=== PATIENT | female | born 1985 | race African-American/Black ===

== ENCOUNTER 2017-04-18 13:24 | Emergency (ER) | payer OTHER ==
[2017-04-18] MEDS ORDERED: methylPREDNISolone NA SUCC 125 MG/2 ML VIAL IVPUSH ONE (13:35)
[2017-04-18] MEDS ORDERED: ALBUTEROL SO4 2.5/IPRATROPIUM 0.5 INH SOL 3 ML VIAL.NEB. NEB ONE ×3 (13:35→14:20)
[2017-04-18] MEDS ORDERED: SODIUM CHLORIDE 0.9% 1000 ML INFUS.BAG IV ONE (13:35)
[2017-04-18 13:40] VITALS: BP 130/87; PULSE 110; TEMP 97.8; BMI 35.9
[2017-04-18] MEDS ORDERED: methylPREDNISolone NA SUCC 125 MG/2 ML VIAL ONE (13:42)
--- NOTE | 2017-04-18 13:44 | PDOC ---
History of Present Illness - General Chief Complaint: Asthma Stated Complaint: ASTHMA ATTACK Time Seen by Provider: 04/18/17 13:35 History Source: Patient Exam Limitations: No Limitations - History of Present Illness Initial Comments: 04/18/17 13:43 The patient is a 31F with a PMH of asthma who presents in an asthma exacerbation. The patient states that she's felt short of breath since last night and it does not feel like her asthma attacks. She has not had an asthma attack in 5 years and does not take any medications daily for asthma. She also admits to a dry cough that started 1 hour ago and is intermittent. She denies any fever, chills, CP, abdominal pain, nausea, and vomiting. She denies OCP use , but admits to a 4 hour car ride 2 weeks ago and some R calf pain. Past History - Past Medical History Allergies/Adverse Reactions: Allergies Allergy/AdvReac Type Severity Reaction Status Date / Time shellfish derived Allergy THROAT Verified 04/18/17 13:40 SWELLING Home Medications: Ambulatory Orders Albuterol Sulfate [Proventil HFA Inhaler -] 1 - 2 inh PO TID 03/19/15 Oxycodone HCl/Acetaminophen [Percocet 5-325 mg Tablet -] 1 tab PO Q6H PRN #20 tablet 03/20/15 Anemia: Yes Asthma: Yes Cancer: No Cardiac Disorders: No CVA: No COPD: No CHF: No Dementia: No Diabetes: No GI Disorders: No Disorders: No HTN: No Hypercholesterolemia: No Liver Disease: No Seizures: No Thyroid Disease: No - Surgical History Abdominal Surgery: Yes (hernia) Appendectomy: No Cardiac Surgery: No Cholecystectomy: No Lung Surgery: No Neurologic Surgery: No Orthopedic Surgery: No - Suicide/Smoking/Psychosocial Hx Smoking History: Never smoked Have you smoked in the past 12 months: No Information on smoking cessation initiated: No Hx Alcohol Use: Yes (SOCIAL) Drug/Substance Use Hx: No Substance Use Type: Alcohol Hx Substance Use Treatment: No Review of Systems - Review of Systems Able to Perform ROS?: Yes Comments:: 04/18/17 13:53 GENERAL/CONSTITUTIONAL: No fever or chills. No weakness. HEAD, EYES, EARS, NOSE AND THROAT: No change in vision. No ear pain or discharge. No sore throat. CARDIOVASCULAR: Positive for chest tightness. No chest pain, palpitations, or lightheadedness. RESPIRATORY: Positive for SOB and cough. No wheezing, or hemoptysis. GASTROINTESTINAL: No nausea, vomiting, diarrhea, constipation, or abdominal pain. GENITOURINARY: No dysuria, frequency, hematuria, or change in urination. MUSCULOSKELETAL: Positive for R calf pain. No neck or back pain. SKIN: No rash or lesions. NEUROLOGIC: No headache, numbness, tingling, weakness, loss of consciousness, or change in strength/sensation. ENDOCRINE: No increased thirst. No abnormal weight change. HEMATOLOGIC/LYMPHATIC: No anemia, easy bleeding, or history of blood clots. ALLERGIC/IMMUNOLOGIC: No hives or skin allergy. Is the patient limited Italian proficient: No *Physical Exam - Vital Signs Last Vital Signs Temp Pulse Resp BP Pulse Ox 97.8 F 110 H 26 H 130/87 100 04/18/17 13:35 04/18/17 13:38 04/18/17 13:35 04/18/17 13:35 04/18/17 13:38 - Physical Exam Comments: 04/18/17 13:56 GENERAL: Well developed, well nourished, obese. Awake and alert. In moderate distress. HEENT: Normocephalic, atraumatic. Hearing grossly normal. Moist mucous membranes. PERRLA, EOMI. No conjunctival pallor. Sclera are non-icteric. NECK: Supple. Full ROM. No JVD. CARDIOVASCULAR: Regular rate and rhythm. No murmurs, rubs, or gallops. Distal pulses are 2+ and symmetric. PULMONARY: Mild respiratory distress, no retractions. LCTAB. No wheezing, rales or rhonchi. ABDOMINAL: Soft. Non-tender. Non-distended. No rebound or guarding. No organomegaly. Normoactive bowel sounds. GENITOURINARY: No CVA tenderness bilaterally. MUSCULOSKELETAL: Normal range of motion at all joints. No bony deformities or tenderness. EXTREMITIES: No cyanosis. No clubbing. No edema. No calf tenderness. SKIN: Warm and dry. Normal capillary refill. No rashes. No jaundice. NEUROLOGICAL: Alert, awake, appropriate. Cranial nerves 2-12 intact. Normal speech. Gait is normal without ataxia. PSYCHIATRIC: Cooperative. Good eye contact. Appropriate mood and affect. ED Treatment Course - LABORATORY CBC & Chemistry Diagram: 04/18/17 14:05 04/18/17 14:05 - RADIOLOGY Radiology Studies Ordered: Category Date Time Status CHEST X-RAY PORTABLE* [RAD] Stat Radiology 04/18/17 13:36 Ordered Medical Decision Making - Medical Decision Making 04/18/17 14:03 The patient is a 31F with a PMH of asthma who presents with SOB. I am concerned for PE as the patient states this is not like her usual SOB and she has long car trips with R calf pain. Pending labs and imaging. Will monitor closely. Will give duonebs for treatment with steroids and IVF. 04/18/17 15:59 Preliminary reading of chest xr reveals no acute process. Will reevaluate patient. Labs WNL. 04/18/17 16:57 CXR shows no acute pathology. Will d/c pt with albuterol and d/c instruction to return if symptoms worsen. *DC/Admit/Observation/Transfer Diagnosis at time of Disposition: Asthma attack Qualifiers: Asthma severity: mild Asthma persistence: intermittent Qualified Code(s): J45.21 - Mild intermittent asthma with (acute) exacerbation - Discharge Dispostion Disposition: HOME Condition at time of disposition: Stable Admit: No - Referrals Referrals: Cynthia Sanabria MD [Primary Care Provider] - - Patient Instructions Printed Discharge Instructions: Asthma -- Adult Additional Instructions: Please return to the ER if symptoms persist, worsen, or new symptoms arise. Please follow up with your primary care physician in 2-3 days. Please return to the ER if you have any signs or symptoms of chest pain, shortness of breath, uncontrollable fever, chills, nausea, vomiting, numbness, tingling, or weakness in any part of your body, changes in vision, or slurred speech. Please take your medications as prescribed. - Post Discharge Activity
[2017-04-18 14:14] LABS: BASO % 1.3 % (0-2.0); EOS % 1.7 % (0-4.5); HEMOGLOBIN 10.7 GM/dL (10.7-15.3); LYMPH % 56.4 % (8-40); MCH 21.7 pg (25.7-33.7); MCHC 30.7 g/dl (32.0-36.0); MEAN CELL VOLUME 70.5 fl (80-96); MEAN PLT VOLUME 8.7 fl (7.5-11.1); MONO % 6.2 % (3.8-10.2); NEUT % 34.4 % (42.8-82.8); PLATELET COUNT 374 K/MM3 (134-434); RBC 4.96 M/mm3 (3.60-5.2); RDW 18.3 % (11.6-15.6); WHITE BLOOD COUNT 6.9 K/mm3 (4.0-10.0)
[2017-04-18 14:41] LABS: ALBUMIN 4.3 g/dl (3.4-5.0); ANION GAP 12 (8-16); BILIRUBIN,TOTAL 0.6 mg/dL (0.2-1.0); BLOOD UREA NITROGEN 19 mg/dL (7-18); CHLORIDE 102 mmol/L (98-107); CO2 25 mmol/L (21-32); CREATININE 0.8 mg/dL (0.55-1.02); GLUCOSE,RANDOM 98 mg/dL (74-106); POTASSIUM 3.4 mmol/L (3.5-5.1); SGOT/AST 16 U/L (15-37); SGPT/ALT 19 U/L (12-78); SODIUM 139 mmol/L (136-145); TOT PROT 8.3 g/dl (6.4-8.2)
[2017-04-18 14:48] LABS: ALK PHOS 56 U/L (45-117)
[2017-04-18 14:50] LABS: MAGNESIUM 1.8 mg/dL (1.8-2.4)
--- NOTE | 2017-04-18 15:25 | PDOC ---
Attending Attestation - Resident Resident Name: Lion Aragon - ED Attending Attestation I have performed the following: I have examined & evaluated the patient, The case was reviewed & discussed with the resident, I agree w/resident's findings & plan, Exceptions are as noted - HPI HPI: 04/18/17 15:21 31 F with h/o asthma presents to ED with 2 days of SOB and chest pressure. Pt states that her symptoms started yesterday and progressively worsened. Today at work, she felt very lightheaded and had difficulty breathing, which prompted her to come to ER. Pt states that she has had asthma exacerbations in the past, and this feels slightly different. Pt reports that she has been driving a lot recently and noticed some cramping in her R calf which has since subsided. She is not on OCPs. Denies h/o DVT/PE. - Physicial Exam PE: 04/18/17 15:23 "GENERAL: Awake, alert, and fully oriented, in no acute distress HEAD: No signs of trauma EYES: PERRLA, EOMI, sclera anicteric, conjunctiva clear ENT: Auricles normal inspection, hearing grossly normal, nares patent, oropharynx clear without exudates. Moist mucosa NECK: Nontender, no stepoffs, Normal ROM, supple, no lymphadenopathy, JVD, or masses LUNGS: + bilateral expiratory wheezes HEART: Regular rate and rhythm, normal S1 and S2, no murmurs, rubs or gallops ABDOMEN: Soft, nontender, normoactive bowel sounds. No guarding, no rebound. No masses EXTREMITIES: Normal range of motion, no edema. No clubbing or cyanosis. No cords, erythema, or tenderness NEUROLOGICAL: Cranial nerves II through XII intact. 5/5 strength and sensation in all extremities, Normal speech, normal gait SKIN: Warm, Dry, normal turgor, no rashes or lesions noted. " - Medical Decision Making 04/18/17 15:23 31 F with SOB, found to be wheezing on exam. Likely asthma exacerbation. Pt with no clinical signs of DVT, but given prolonged driving and R calf cramp, will send ddimer to r/o DVT/PE. - Labs, ddimer - nebs, steroids - reassess
== END 2017-04-18 17:10 | disposition home or self-care (01) ==
LOC: JER 13:24
PROC: 3E0F7GC Introduction of Other Therapeutic Substance into Respiratory Tract, Via Natural or Artificial Opening (ICD-10-PCS; principal; 2017-04-18)
PROC: 3E0F7GC Introduction of Other Therapeutic Substance into Respiratory Tract, Via Natural or Artificial Opening (ICD-10-PCS; 2017-04-18)
PROC: 3E0333Z Introduction of Anti-inflammatory into Peripheral Vein, Percutaneous Approach (ICD-10-PCS; 2017-04-18)
PROC: 3E0333Z Introduction of Anti-inflammatory into Peripheral Vein, Percutaneous Approach (ICD-10-PCS; 2017-04-18)
DX: J45.21 Mild intermittent asthma with (acute) exacerbation (principal)
CPT/HCPCS: 36415; 71045-TC; 80053; 83735; 84703; 85025; 85379; 99282-25

== ENCOUNTER 2023-07-25 04:28 | Inpatient (IN) | payer OTHER, BC ==
[2023-07-20 15:56] VITALS: BMI 30.7
[2023-07-25] MEDS ORDERED: ceFAZolin SODIUM 1 GM VIAL ONE (06:51)
[2023-07-25] MEDS ORDERED: HEPARIN NA (PORCINE) 5,000 UNITS/ML 1ML VIAL ONE (07:17)
[2023-07-25] MEDS ORDERED: ROCURONIUM BROMIDE 50 MG/5 ML SYRINGE ONE ×2 (07:20→10:27)
[2023-07-25] MEDS ORDERED: FENTANYL CITRATE/PF 50 MCG/ML VIAL ONE ×5 (07:20→12:54)
[2023-07-25] MEDS ORDERED: PROPOFOL 20 ML ONE (07:20)
[2023-07-25] MEDS ORDERED: MIDAZOLAM HCL 2 MG/2 ML SINGLE DOSE VIAL ONE (07:21)
[2023-07-25] MEDS ORDERED: ONDANSETRON 4 MG/2 ML VIAL IVPUSH PRN ×2 (07:28→11:27)
[2023-07-25] MEDS ORDERED: ACETAMINOPHEN 325 MG TABLET (FP) PO PRN (07:28)
[2023-07-25] MEDS ORDERED: ACETAMINOPHEN INJECTION 100 ML IVPB ONE (07:46)
[2023-07-25] MEDS ORDERED: DEXAMETHASONE SOD PHOSPHATE 10 MG/1 ML VIAL ONE (07:59)
[2023-07-25] MEDS ORDERED: BUPIVACAINE HCL/PF 0.25% (2.5MG/ML) 10 ML VIAL ONE (07:59)
[2023-07-25] MEDS: ceFAZolin SODIUM 1 GM VIAL IVPB ONE (09:15)
[2023-07-25] MEDS ORDERED: ONDANSETRON 4 MG/2 ML VIAL ONE (09:16)
[2023-07-25] MEDS ORDERED: DEXAMETHASONE SOD PHOSPHATE 4 MG/1 ML VIAL ONE ×2 (09:16)
[2023-07-25] MEDS ORDERED: SUGAMMADEX SODIUM 200 MG/2 ML VIAL ONE (10:27)
[2023-07-25] MEDS ORDERED: HYDROmorphone HCl 2 MG/ML VIAL ONE (10:46)
[2023-07-25] MEDS ORDERED: KETOROLAC TROMETHAMINE 30 MG/1 ML VIAL ONE (10:47)
[2023-07-25] MEDS: LACTATED RINGERS SOLUTION 1,000 ML IV SCH (11:20)
[2023-07-25] MEDS ORDERED: ALBUTEROL SO4 HFA INHALER IH PRN (11:45)
[2023-07-25 13:16] LABS: HEMATOCRIT 24.2 % (32.4-45.2); HEMOGLOBIN 7.4 GM/dL (10.7-15.3); MCHC 30.5 g/dl (32.0-36.0); MEAN CELL VOLUME 63.5 fl (80-96); MEAN PLT VOLUME 8.3 fl (7.5-11.1); PLATELET COUNT 241 10^3/uL (134-434); RBC 3.82 M/mm3 (3.60-5.2); RDW 21.5 % (11.6-15.6); WHITE BLOOD COUNT 13.7 K/mm3 (4.0-10.0)
[2023-07-25 13:17] LABS: MCH 19.4 pg (25.7-33.7)
[2023-07-25] MEDS: CEFAZOLIN SODIUM 2 GM in DEXTROSE 5%-WATER 100 ML IVPB ONE (14:39)
[2023-07-25] MEDS: ACETAMINOPHEN 325 MG TABLET (FP) PO SCH ×2 (14:40→16:53)
[2023-07-25] MEDS: KETOROLAC TROMETHAMINE 30 MG/1 ML VIAL IVPUSH SCH ×2 (16:52→16:59)
[2023-07-25] MEDS: HYDROmorphone HCl 2 MG/ML VIAL IVPB PRN (20:28)
[2023-07-26 06:52] LABS: HEMATOCRIT 17.1 % (32.4-45.2); MCHC 31.2 g/dl (32.0-36.0); MEAN CELL VOLUME 63.6 fl (80-96); MEAN PLT VOLUME 8.2 fl (7.5-11.1); PLATELET COUNT 179 10^3/uL (134-434); RBC 2.69 M/mm3 (3.60-5.2); RDW 20.7 % (11.6-15.6); WHITE BLOOD COUNT 10.4 K/mm3 (4.0-10.0)
[2023-07-26 07:06] LABS: MCH 19.9 pg (25.7-33.7)
[2023-07-26 07:11] LABS: HEMOGLOBIN 5.3 GM/dL (10.7-15.3)
[2023-07-26] MEDS ORDERED: ENOXAPARIN NA (PORCINE) 40 MG/0.4 ML DISP.SYRIN SQ SCH (10:00)
[2023-07-26] MEDS: ACETAMINOPHEN 1000 MG/100 ML BAG IVPB SCH (10:32)
[2023-07-26] MEDS ORDERED: ACETAMINOPHEN 500 MG TABLET (FP) PO SCH (14:00)
[2023-07-26 15:15] LABS: BASO % 0.7 % (0-2.0); EOS % 0.1 % (0-4.5); LYMPH % 26.4 % (8-40); MCH 22.8 pg (25.7-33.7); MCHC 32.2 g/dl (32.0-36.0); MEAN CELL VOLUME 70.9 fl (80-96); MEAN PLT VOLUME 8.2 fl (7.5-11.1); MONO % 6.9 % (3.8-10.2); NEUT % 65.9 % (42.8-82.8); PLATELET COUNT 167 10^3/uL (134-434); RBC 3.52 M/mm3 (3.60-5.2); RDW 25.9 % (11.6-15.6); WHITE BLOOD COUNT 11.5 K/mm3 (4.0-10.0)
[2023-07-26] MEDS ORDERED: SIMETHICONE 80 MG TAB.CHEW (FP) PO PRN (15:32)
[2023-07-26] MEDS: oxyCODONE HCL 5 MG TABLET PO PRN (15:48)
[2023-07-26] MEDS: FAMOTIDINE 20 MG/50 ML IVPB 20 MG/50 ML MG IVPB ONE (16:22)
[2023-07-26 17:17] LABS: ANISOCYTOSIS 3+; MACROCYTOSIS 0; TARGET CELLS 1+
[2023-07-27] MEDS: oxyCODONE HCL 5 MG TABLET PO PRN (06:38)
[2023-07-27 08:22] LABS: BASO % 0.9 % (0-2.0); EOS % 1.1 % (0-4.5); HEMATOCRIT 22.8 % (32.4-45.2); HEMOGLOBIN 7.5 GM/dL (10.7-15.3); LYMPH % 34.3 % (8-40); MCH 23.1 pg (25.7-33.7); MCHC 33.1 g/dl (32.0-36.0); MEAN CELL VOLUME 69.8 fl (80-96); MEAN PLT VOLUME 8.2 fl (7.5-11.1); MONO % 5.8 % (3.8-10.2); NEUT % 57.9 % (42.8-82.8); PLATELET COUNT 162 10^3/uL (134-434); RBC 3.27 M/mm3 (3.60-5.2); RDW 24.4 % (11.6-15.6); WHITE BLOOD COUNT 9.8 K/mm3 (4.0-10.0)
[2023-07-27 09:25] LABS: CALCIUM 7.5 mg/dL (8.5-10.1); CREATININE 0.6 mg/dL (0.55-1.3); POTASSIUM 3.7 mmol/L (3.5-5.1)
[2023-07-27] MEDS: ACETAMINOPHEN 500 MG TABLET (FP) PO SCH ×2 (14:38→21:50)
[2023-07-27 15:17] LABS: BASO % 0.7 % (0-2.0); EOS % 1.4 % (0-4.5); HEMATOCRIT 23.8 % (32.4-45.2); HEMOGLOBIN 7.7 GM/dL (10.7-15.3); LYMPH % 34.4 % (8-40); MCH 22.6 pg (25.7-33.7); MCHC 32.3 g/dl (32.0-36.0); MEAN CELL VOLUME 69.9 fl (80-96); MEAN PLT VOLUME 8.2 fl (7.5-11.1); MONO % 5.5 % (3.8-10.2); PLATELET COUNT 176 10^3/uL (134-434); RDW 24.7 % (11.6-15.6); WHITE BLOOD COUNT 9.2 K/mm3 (4.0-10.0)
[2023-07-27] MEDS: FERROUS SO4 325 MG TABLET (FP) PO SCH (17:18)
[2023-07-27] MEDS ORDERED: ALBUTEROL SO4 HFA INHALER IH PRN (18:26)
[2023-07-27] MEDS ORDERED: oxyCODONE HCL 5 MG TABLET PO PRN ×2 (18:26)
[2023-07-27] MEDS ORDERED: ONDANSETRON 4 MG/2 ML VIAL IVPUSH PRN (18:26)
[2023-07-27] MEDS: IBUPROFEN 600 MG TABLET (FP) PO PRN (20:40)
[2023-07-27] MEDS ORDERED: PATIENT'S OWN MEDICATION (NON-FORMULARY) (Fluticasone/Salmeterol [Advair Hfa 115-21 Mcg In PO SCH (22:00)
[2023-07-28] MEDS: PATIENT'S OWN MEDICATION (NON-FORMULARY) (Fluticasone/Salmeterol [Advair Hfa 115-21 Mcg In PO SCH (02:15)
[2023-07-28] MEDS: SIMETHICONE 80 MG TAB.CHEW (FP) PO PRN (09:12)
[2023-07-28] MEDS: FERROUS SO4 325 MG TABLET (FP) PO SCH (09:12)
[2023-07-28 09:32] LABS: BASO % 0.8 % (0-2.0); EOS % 1.9 % (0-4.5); HEMATOCRIT 27.1 % (32.4-45.2); LYMPH % 22.6 % (8-40); MCH 23.7 pg (25.7-33.7); MCHC 33.3 g/dl (32.0-36.0); MEAN CELL VOLUME 71.2 fl (80-96); MONO % 6.1 % (3.8-10.2); NEUT % 68.6 % (42.8-82.8); PLATELET COUNT 173 10^3/uL (134-434); RDW 25.1 % (11.6-15.6); WHITE BLOOD COUNT 8.2 K/mm3 (4.0-10.0)
[2023-07-28] MEDS: LACTATED RINGERS SOLUTION 1,000 ML IV SCH (12:41)
[2023-07-28 13:46] VITALS: BP 132/81; PULSE 86; RESP 18; TEMP 97.3
[2023-07-28] MEDS: POLYETHYLENE GLYCOL (HEALTHYLAX) 3350 17 GM PACKET PO ONE (15:50)
[2023-07-28] MEDS: KETOROLAC TROMETHAMINE 15 MG/ML VIAL IVPUSH ONE (15:50)
== END 2023-07-28 17:18 | disposition home or self-care (01) | DRG 742 ==
LOC: J2C 04:28 → J3W 14:19 → J8W 07-27 17:57
PROVIDERS: ADMIT Obstetrics & Gynecology Gynecologic Oncology; ATTEND Obstetrics & Gynecology Gynecologic Oncology
PROC: 0UB10ZZ Excision of Left Ovary, Open Approach (ICD-10-PCS; 2023-07-25)
PROC: 30233N1 Transfusion of Nonautologous Red Blood Cells into Peripheral Vein, Percutaneous Approach (ICD-10-PCS; 2023-07-25)
PROC: 0UB90ZZ Excision of Uterus, Open Approach (ICD-10-PCS; principal; 2023-07-25 08:00)
DX: D25.9 Leiomyoma of uterus, unspecified (principal); D62 Acute posthemorrhagic anemia; N83.292 Other ovarian cyst, left side; N92.0 Excessive and frequent menstruation with regular cycle
CPT/HCPCS: 36415; 36430; 80048; 81025; 85025; 85027; 86922; 88304-TC; 88305-TC; 94010; 94760; J0131; J1100; J1644; P9038; P9058

== ENCOUNTER 2023-08-02 16:59 | Emergency (ER) | payer OTHER, BC ==
[2023-08-02 17:10] VITALS: RESP 18; BMI 30.7
[2023-08-02 19:50] LABS: EOS % 1.9 % (0-4.5); HEMATOCRIT 34.2 % (32.4-45.2); HEMOGLOBIN 10.9 GM/dL (10.7-15.3); LYMPH % 34.1 % (8-40); MCH 22.9 pg (25.7-33.7); MCHC 31.9 g/dl (32.0-36.0); MEAN CELL VOLUME 71.9 fl (80-96); MEAN PLT VOLUME 7.8 fl (7.5-11.1); MONO % 4.5 % (3.8-10.2); NEUT % 57.5 % (42.8-82.8); PLATELET COUNT 440 10^3/uL (134-434); RBC 4.75 M/mm3 (3.60-5.2); RDW 27.6 % (11.6-15.6); WHITE BLOOD COUNT 9.2 K/mm3 (4.0-10.0)
[2023-08-02 20:13] LABS: POTASSIUM 4.5 mmol/L (3.5-5.1)
[2023-08-02 20:16] LABS: ALBUMIN 3.5 g/dl (3.4-5.0); BLOOD UREA NITROGEN 12.7 mg/dL (7-18)
[2023-08-02] MEDS: RIVAROXABAN 15 MG TABLET PO ONE (20:17)
[2023-08-02 20:19] LABS: CREATININE 0.7 mg/dL (0.55-1.3)
[2023-08-02 20:20] LABS: TOT PROT 7.6 g/dl (6.4-8.2)
[2023-08-02 20:21] LABS: BILIRUBIN,TOTAL 0.5 mg/dL (0.2-1)
[2023-08-02 20:22] LABS: CALCIUM 9.7 mg/dL (8.5-10.1)
[2023-08-02 20:23] VITALS: BP 114/82; PULSE 98; TEMP 97.6
[2023-08-02 20:40] LABS: ANISOCYTOSIS 3+; MACROCYTOSIS 0; TARGET CELLS 2+
== END 2023-08-02 20:34 | disposition home or self-care (01) ==
LOC: JER 16:59
DX: M79.661 Pain in right lower leg (principal); I82.441 Acute embolism and thrombosis of right tibial vein
CPT/HCPCS: 36415; 80053; 85025; 99283-25

== ENCOUNTER 2023-08-05 14:29 | Observation (INO) | payer OTHER, BC ==
[2023-08-05 15:09] VITALS: BMI 30.7
[2023-08-05 16:57] LABS: EOS % 0.3 % (0-4.5); HEMATOCRIT 29.9 % (32.4-45.2); HEMOGLOBIN 9.7 GM/dL (10.7-15.3); LYMPH % 8.7 % (8-40); MCH 23.3 pg (25.7-33.7); MCHC 32.4 g/dl (32.0-36.0); MEAN CELL VOLUME 71.9 fl (80-96); MEAN PLT VOLUME 7.8 fl (7.5-11.1); MONO % 2.5 % (3.8-10.2); NEUT % 87.5 % (42.8-82.8); PLATELET COUNT 499 10^3/uL (134-434); RBC 4.16 M/mm3 (3.60-5.2); RDW 26.3 % (11.6-15.6); WHITE BLOOD COUNT 17.7 K/mm3 (4.0-10.0)
[2023-08-05 16:58] LABS: INR 1.7 (0.83-1.09); PROTHROMBIN TIME (PATIENT) 19.3 SEC (9.7-13.0)
[2023-08-05 17:01] LABS: ACTIVATED PTT 33.5 SECONDS (25.2-36.5)
[2023-08-05 17:12] LABS: CHLORIDE 106 mmol/L (98-107); POTASSIUM 4.4 mmol/L (3.5-5.1); SODIUM 137 mmol/L (136-145)
[2023-08-05 17:14] LABS: CALCIUM 8.7 mg/dL (8.5-10.1)
[2023-08-05 17:15] LABS: ALBUMIN 3.3 g/dl (3.4-5.0); ANION GAP 6 mmol/L (4-13); BLOOD UREA NITROGEN 17.9 mg/dL (7-18); CO2 24 mmol/L (21-32); GLUCOSE,RANDOM 126 mg/dL (74-106)
[2023-08-05 17:18] LABS: CREATININE 0.8 mg/dL (0.55-1.3); SGOT/AST 22 U/L (15-37); SGPT/ALT 17 U/L (13-61)
[2023-08-05 17:19] LABS: BILIRUBIN,TOTAL 0.3 mg/dL (0.2-1); TOT PROT 7.1 g/dl (6.4-8.2)
[2023-08-05 17:20] LABS: ALK PHOS 50 U/L (45-117)
[2023-08-05 22:47] LABS: BASO % 1.2 % (0-2.0); EOS % 0.7 % (0-4.5); HEMATOCRIT 29.8 % (32.4-45.2); HEMOGLOBIN 9.5 GM/dL (10.7-15.3); LYMPH % 25.7 % (8-40); MCH 22.9 pg (25.7-33.7); MCHC 31.9 g/dl (32.0-36.0); MEAN CELL VOLUME 71.8 fl (80-96); MEAN PLT VOLUME 7.3 fl (7.5-11.1); NEUT % 69.4 % (42.8-82.8); PLATELET COUNT 501 10^3/uL (134-434); RBC 4.14 M/mm3 (3.60-5.2); RDW 26.8 % (11.6-15.6); WHITE BLOOD COUNT 12.6 K/mm3 (4.0-10.0)
[2023-08-05 23:18] LABS: ANISOCYTOSIS 3+; MACROCYTOSIS 1+; OVALOCYTE 1+
[2023-08-06] MEDS ORDERED: ALBUTEROL SO4 HFA INHALER IH PRN (00:05)
[2023-08-06] MEDS ORDERED: ACETAMINOPHEN 325 MG TABLET (FP) PO PRN (01:29)
[2023-08-06] MEDS: SODIUM CHLORIDE 1,000 ML IV SCH (08:18)
[2023-08-06 09:14] LABS: BASO % 1.2 % (0-2.0); EOS % 0.9 % (0-4.5); HEMATOCRIT 28.1 % (32.4-45.2); LYMPH % 34.4 % (8-40); MCH 23.1 pg (25.7-33.7); MCHC 31.9 g/dl (32.0-36.0); MEAN CELL VOLUME 72.4 fl (80-96); MEAN PLT VOLUME 8.2 fl (7.5-11.1); NEUT % 60.5 % (42.8-82.8); PLATELET COUNT 471 10^3/uL (134-434); RBC 3.88 M/mm3 (3.60-5.2); RDW 26.5 % (11.6-15.6); WHITE BLOOD COUNT 10.7 K/mm3 (4.0-10.0)
[2023-08-06 09:22] LABS: POTASSIUM 4.1 mmol/L (3.5-5.1)
[2023-08-06 09:24] LABS: CALCIUM 8.9 mg/dL (8.5-10.1)
[2023-08-06 09:25] LABS: ALBUMIN 3.2 g/dl (3.4-5.0); BLOOD UREA NITROGEN 16.7 mg/dL (7-18); MAGNESIUM 2.2 mg/dL (1.8-2.4)
[2023-08-06 09:28] LABS: CREATININE 0.6 mg/dL (0.55-1.3); PHOSPHOROUS 4.6 mg/dL (2.5-4.9)
[2023-08-06 09:29] LABS: BILIRUBIN,TOTAL 0.5 mg/dL (0.2-1); TOT PROT 6.6 g/dl (6.4-8.2)
[2023-08-06] MEDS ORDERED: PATIENT'S OWN MEDICATION (NON-FORMULARY) (Fluticasone/Salmeterol [Advair Hfa 115-21 Mcg In IH SCH (10:00)
[2023-08-06] MEDS: ASCORBIC ACID 500 MG TABLET (FP) PO SCH (10:35)
[2023-08-06] MEDS: FERROUS SO4 325 MG TABLET (FP) PO SCH (10:35)
[2023-08-06 11:21] LABS: EPI CELLS 9 /uL (0-25.1); HYALINE CASTS 1 /uL (0-3.1); PH,URINE 5.5 (5.0-8.0); URINE APPEARANCE Clear; URINE BACTERIA 121 /uL (0-1359); URINE BILIRUBIN Negative (NEGATIVE); URINE COLOR Yellow; URINE GLUCOSE (UA) Negative (NEGATIVE); URINE KETONE Negative (NEGATIVE); URINE LEUK ESTERASE Negative (NEGATIVE); URINE NITRITE Negative (NEGATIVE); URINE PROTEIN Negative (NEGATIVE); URINE RBC 44 /uL (0-23.9); URINE UROBILINOGEN 0.2 mg/dL (0.2-1.0); URINE WBC 18 /uL (0-25.8)
[2023-08-06] MEDS ORDERED: ACETAMINOPHEN 1000 MG/100 ML BAG IVPB PRN (11:27)
[2023-08-06] MEDS: PANTOPRAZOLE 40 MG TABLET PO SCH (12:17)
[2023-08-06] MEDS: BUDESONIDE/FORMETEROL FUMARATE 80/4.5 mcg INHALER IH SCH (12:18)
[2023-08-06] MEDS: IRON SUCROSE INJECTION 200 MG in SODIUM CHLORIDE 100 ML IVPB ONE (12:18)
[2023-08-06 15:01] LABS: BASO % 1.2 % (0-2.0); EOS % 0.7 % (0-4.5); HEMATOCRIT 29.1 % (32.4-45.2); HEMOGLOBIN 9.1 GM/dL (10.7-15.3); LYMPH % 29.7 % (8-40); MCH 22.8 pg (25.7-33.7); MCHC 31.2 g/dl (32.0-36.0); MEAN CELL VOLUME 72.9 fl (80-96); MEAN PLT VOLUME 7.7 fl (7.5-11.1); MONO % 3.1 % (3.8-10.2); NEUT % 65.3 % (42.8-82.8); PLATELET COUNT 478 10^3/uL (134-434); RDW 26.2 % (11.6-15.6); WHITE BLOOD COUNT 11.4 K/mm3 (4.0-10.0)
[2023-08-06 22:54] LABS: BASO % 1.3 % (0-2.0); EOS % 0.9 % (0-4.5); HEMATOCRIT 25.5 % (32.4-45.2); HEMOGLOBIN 8.3 GM/dL (10.7-15.3); LYMPH % 31.1 % (8-40); MCH 23.5 pg (25.7-33.7); MCHC 32.4 g/dl (32.0-36.0); MEAN CELL VOLUME 72.7 fl (80-96); MEAN PLT VOLUME 7.7 fl (7.5-11.1); MONO % 4.2 % (3.8-10.2); NEUT % 62.5 % (42.8-82.8); PLATELET COUNT 445 10^3/uL (134-434); RBC 3.51 M/mm3 (3.60-5.2); RDW 26.3 % (11.6-15.6); WHITE BLOOD COUNT 9.9 K/mm3 (4.0-10.0)
[2023-08-07 02:06] VITALS: RESP 18
[2023-08-07 09:50] LABS: BASO % 0.8 % (0-2.0); EOS % 1.1 % (0-4.5); HEMATOCRIT 25.3 % (32.4-45.2); HEMOGLOBIN 8.1 GM/dL (10.7-15.3); LYMPH % 24.2 % (8-40); MCH 23.5 pg (25.7-33.7); MCHC 32.1 g/dl (32.0-36.0); MEAN CELL VOLUME 73.1 fl (80-96); MEAN PLT VOLUME 8.3 fl (7.5-11.1); MONO % 2.7 % (3.8-10.2); NEUT % 71.2 % (42.8-82.8); PLATELET COUNT 444 10^3/uL (134-434); RBC 3.46 M/mm3 (3.60-5.2); RDW 26.3 % (11.6-15.6); WHITE BLOOD COUNT 8.5 K/mm3 (4.0-10.0)
[2023-08-07 10:33] LABS: BILIRUBIN,TOTAL 0.3 mg/dL (0.2-1); BLOOD UREA NITROGEN 10.9 mg/dL (7-18); CALCIUM 8.6 mg/dL (8.5-10.1); CREATININE 0.6 mg/dL (0.55-1.3); TOT PROT 6.2 g/dl (6.4-8.2)
[2023-08-07 11:12] VITALS: BP 106/62; PULSE 98; TEMP 98.1
== END 2023-08-07 12:24 | disposition home or self-care (01) ==
LOC: JER 14:29 → INTOOBSV 23:08 → JERBED 23:08 → J5S 08-06 03:51
PROVIDERS: ADMIT Internal Medicine
PROC: 3E033GC Introduction of Other Therapeutic Substance into Peripheral Vein, Percutaneous Approach (ICD-10-PCS; principal; 2023-08-05)
PROC: 3E0337Z Introduction of Electrolytic and Water Balance Substance into Peripheral Vein, Percutaneous Approach (ICD-10-PCS; 2023-08-05)
DX: N92.0 Excessive and frequent menstruation with regular cycle (principal); D25.9 Leiomyoma of uterus, unspecified; D50.9 Iron deficiency anemia, unspecified; J45.909 Unspecified asthma, uncomplicated; Z86.718 Personal history of other venous thrombosis and embolism; Z79.01 Long term (current) use of anticoagulants; Z91.013 Allergy to seafood
CPT/HCPCS: 0241U-QW; 36415; 72191-TC; 76830-TC; 80053; 81003; 83735; 84100; 84702; 85025; 85610; 85730; 86850; 86900; 86901; 87086; 93005; 93010; 99285-25; G0378; J1756; Q9967

== ENCOUNTER 2023-08-19 10:34 | Observation (INO) | payer OTHER, BC ==
[2023-08-19 12:48] LABS: BASO % 0.6 % (0-2.0); EOS % 0.2 % (0-4.5); HEMATOCRIT 31.9 % (32.4-45.2); HEMOGLOBIN 10.1 GM/dL (10.7-15.3); LYMPH % 11.2 % (8-40); MCH 24.4 pg (25.7-33.7); MCHC 31.6 g/dl (32.0-36.0); MEAN CELL VOLUME 77.1 fl (80-96); MEAN PLT VOLUME 8.5 fl (7.5-11.1); MONO % 2.9 % (3.8-10.2); NEUT % 85.1 % (42.8-82.8); PLATELET COUNT 474 10^3/uL (134-434); RBC 4.13 M/mm3 (3.60-5.2); RDW 26.9 % (11.6-15.6); WHITE BLOOD COUNT 14.4 K/mm3 (4.0-10.0)
[2023-08-19 12:51] LABS: EPI CELLS 5 /uL (0-25.1); HYALINE CASTS 0 /uL (0-3.1); URINE APPEARANCE CLEAR; URINE BACTERIA 4 /uL (0-1359); URINE BILIRUBIN NEGATIVE (NEGATIVE); URINE COLOR YELLOW; URINE GLUCOSE (UA) NEGATIVE (NEGATIVE); URINE KETONE NEGATIVE (NEGATIVE); URINE LEUK ESTERASE NEGATIVE (NEGATIVE); URINE NITRITE NEGATIVE (NEGATIVE); URINE PROTEIN NEGATIVE (NEGATIVE); URINE RBC 32 /uL (0-23.9); URINE UROBILINOGEN 0.2 mg/dL (0.2-1.0); URINE WBC 3 /uL (0-25.8)
[2023-08-19 12:54] LABS: INR 0.97 (0.83-1.09); PROTHROMBIN TIME (PATIENT) 11.2 SEC (9.7-13.0)
[2023-08-19 12:58] LABS: ACTIVATED PTT 25.8 SECONDS (25.2-36.5)
[2023-08-19 13:05] LABS: POTASSIUM 4.6 mmol/L (3.5-5.1)
[2023-08-19 13:07] LABS: CALCIUM 9.4 mg/dL (8.5-10.1); MAGNESIUM 2.1 mg/dL (1.8-2.4)
[2023-08-19 13:08] LABS: BLOOD UREA NITROGEN 20.4 mg/dL (7-18)
[2023-08-19 13:10] LABS: CREATININE 0.8 mg/dL (0.55-1.3)
[2023-08-19 13:12] LABS: BILIRUBIN,TOTAL 0.4 mg/dL (0.2-1); TOT PROT 7.9 g/dl (6.4-8.2)
[2023-08-19 13:54] LABS: ANISOCYTOSIS 2+; MACROCYTOSIS 0; OVALOCYTE 1+
[2023-08-19 16:46] LABS: HEMATOCRIT 28.1 % (32.4-45.2); MCH 24.5 pg (25.7-33.7); MCHC 32.1 g/dl (32.0-36.0); MEAN CELL VOLUME 76.3 fl (80-96); MEAN PLT VOLUME 7.6 fl (7.5-11.1); PLATELET COUNT 423 10^3/uL (134-434); RBC 3.69 M/mm3 (3.60-5.2); RDW 26.4 % (11.6-15.6)
[2023-08-19] MEDS: LACTATED RINGERS SOLUTION 1000 ML INFUS.BAG IV ONE (16:51)
[2023-08-19] MEDS ORDERED: ACETAMINOPHEN 325 MG TABLET (FP) PO PRN (18:38)
[2023-08-19] MEDS: FERROUS SO4 325 MG TABLET (FP) PO SCH (21:37)
[2023-08-19 23:06] VITALS: BMI 29.1
[2023-08-20 07:58] LABS: POTASSIUM 4.2 mmol/L (3.5-5.1)
[2023-08-20 08:04] LABS: CALCIUM 8.8 mg/dL (8.5-10.1)
[2023-08-20 08:05] LABS: BLOOD UREA NITROGEN 13.3 mg/dL (7-18)
[2023-08-20 08:07] LABS: CREATININE 0.6 mg/dL (0.55-1.3)
[2023-08-20 08:09] LABS: BILIRUBIN,TOTAL 0.4 mg/dL (0.2-1); TOT PROT 6.3 g/dl (6.4-8.2)
[2023-08-20 08:10] LABS: BASO % 0.9 % (0-2.0); HEMATOCRIT 25.7 % (32.4-45.2); HEMOGLOBIN 8.1 GM/dL (10.7-15.3); LYMPH % 32.9 % (8-40); MCH 24.7 pg (25.7-33.7); MCHC 31.7 g/dl (32.0-36.0); MEAN PLT VOLUME 8.5 fl (7.5-11.1); MONO % 4.6 % (3.8-10.2); NEUT % 60.6 % (42.8-82.8); PLATELET COUNT 339 10^3/uL (134-434); RBC 3.29 M/mm3 (3.60-5.2); RDW 26.6 % (11.6-15.6); WHITE BLOOD COUNT 6.4 K/mm3 (4.0-10.0)
[2023-08-20 08:15] LABS: ALBUMIN 3.2 g/dl (3.4-5.0)
[2023-08-20] MEDS: PANTOPRAZOLE 40 MG TABLET PO SCH (09:36)
[2023-08-20] MEDS: ASCORBIC ACID 500 MG TABLET (FP) PO SCH (09:38)
[2023-08-20 10:45] VITALS: RESP 18
[2023-08-20 12:54] LABS: HEMATOCRIT 27.8 % (32.4-45.2); HEMOGLOBIN 8.8 GM/dL (10.7-15.3); MCH 24.6 pg (25.7-33.7); MCHC 31.7 g/dl (32.0-36.0); MEAN CELL VOLUME 77.5 fl (80-96); MEAN PLT VOLUME 8.9 fl (7.5-11.1); PLATELET COUNT 384 10^3/uL (134-434); RBC 3.58 M/mm3 (3.60-5.2); RDW 27.1 % (11.6-15.6); WHITE BLOOD COUNT 6.9 K/mm3 (4.0-10.0)
[2023-08-21 08:13] LABS: CALCIUM 8.9 mg/dL (8.5-10.1)
[2023-08-21 08:14] LABS: ALBUMIN 3.4 g/dl (3.4-5.0); BLOOD UREA NITROGEN 11.5 mg/dL (7-18)
[2023-08-21 08:16] LABS: EOS % 1.6 % (0-4.5); HEMATOCRIT 24.8 % (32.4-45.2); HEMOGLOBIN 8.1 GM/dL (10.7-15.3); LYMPH % 42.9 % (8-40); MCH 25.2 pg (25.7-33.7); MCHC 32.5 g/dl (32.0-36.0); MEAN CELL VOLUME 77.4 fl (80-96); MEAN PLT VOLUME 8.6 fl (7.5-11.1); MONO % 5.9 % (3.8-10.2); NEUT % 48.6 % (42.8-82.8); PLATELET COUNT 329 10^3/uL (134-434); RDW 25.6 % (11.6-15.6); WHITE BLOOD COUNT 6.9 K/mm3 (4.0-10.0)
[2023-08-21 08:17] LABS: CREATININE 0.7 mg/dL (0.55-1.3); PHOSPHOROUS 4.7 mg/dL (2.5-4.9)
[2023-08-21 08:18] LABS: BILIRUBIN,TOTAL 0.5 mg/dL (0.2-1); TOT PROT 6.5 g/dl (6.4-8.2)
[2023-08-21] MEDS: IRON SUCROSE INJECTION 200 MG in SODIUM CHLORIDE 100 ML IVPB ONE (11:31)
[2023-08-21 13:49] VITALS: TEMP 98.3
[2023-08-21 18:20] VITALS: BP 99/63; PULSE 89
== END 2023-08-21 21:08 | disposition home or self-care (01) ==
LOC: JER 10:34 → JERBED 17:39 → J4S 20:15
PROVIDERS: ADMIT Internal Medicine; ATTEND Internal Medicine
PROC: 30233N1 Transfusion of Nonautologous Red Blood Cells into Peripheral Vein, Percutaneous Approach (ICD-10-PCS; principal; 2023-08-19)
PROC: 3E033GC Introduction of Other Therapeutic Substance into Peripheral Vein, Percutaneous Approach (ICD-10-PCS; 2023-08-19)
PROC: 3E0337Z Introduction of Electrolytic and Water Balance Substance into Peripheral Vein, Percutaneous Approach (ICD-10-PCS; 2023-08-19)
DX: D50.9 Iron deficiency anemia, unspecified (principal); N93.9 Abnormal uterine and vaginal bleeding, unspecified; R94.31 Abnormal electrocardiogram [ECG] [EKG]; J45.909 Unspecified asthma, uncomplicated; D25.9 Leiomyoma of uterus, unspecified; R55 Syncope and collapse; Z98.890 Other specified postprocedural states; Z86.718 Personal history of other venous thrombosis and embolism; Z91.013 Allergy to seafood
CPT/HCPCS: 36415; 36430; 71275-TC; 80053; 81003; 82728; 83540; 83550; 83735; 84100; 84484; 84702; 85025; 85027; 85379; 85384; 85610; 85730; 86850; 86900; 86901; 86922; 87086; 93005; 93010; 93306-TC; 93971-TC; 99285-25; G0378; J1756; P9058